=== PATIENT | female | born 1960 | race Caucasian/White ===

== ENCOUNTER 2017-08-27 00:05 | Emergency (ER) | payer MEDICAID ==
[~2017-08-27] VITALS: Ht 160 cm; Wt 44.0 kg
[2017-08-27 00:09] VITALS: BP_SYST 117
[2017-08-27] MEDS ORDERED: NACL 0.9% 1,000 ML IV ONE (00:27)
[2017-08-27] MEDS ORDERED: ONDANSETRON HCL 4 MG/2 ML VIAL IVP ONE (00:30)
[2017-08-27] MEDS ORDERED: KETOROLAC TROMETHAMINE 30 MG VIAL IVP ONE ×2 (00:30→02:15)
[2017-08-27 00:59] LABS: BASOPHILS # (AUTO) 0.2 K/uL (0.0-0.2); BASOPHILS % (AUTO) 1.2 % (0.0-2.0); EOSINOPHILS # (AUTO) 0.1 K/uL (0.0-0.4); EOSINOPHILS % (AUTO) 0.3 % (0.0-4.0); HEMATOCRIT 43.1 % (36-48); HEMOGLOBIN 14.2 g/dL (12.0-16.0); LYMPHOCYTES # (AUTO) 1.3 K/uL (1.0-5.5); LYMPHOCYTES % (AUTO) 7.7 % (20.5-51.5); MEAN CORPUSCULAR HEMOGLOBIN 32 pg (27-31); MEAN CORPUSCULAR HGB CONC 33 % (32-36); MEAN CORPUSCULAR VOLUME 97 fL (79.0-98.0); MONOCYTES # (AUTO) 0.7 K/uL (0.0-1.0); MONOCYTES % (AUTO) 3.9 % (1.7-9.3); NEUTROPHILS # (AUTO) 15.2 K/uL (1.8-7.7); NEUTROPHILS % (AUTO) 86.9 % (40.0-70.0); PLATELET COUNT (AUTO) 284 K/uL (130-430); RED BLOOD CELL COUNT(AUTO) 4.46 MIL/uL (4.2-6.2); RED CELL DISTRIBUTION WIDTH 12.4 % (9.0-15.0); WHITE BLOOD COUNT (AUTO) 17.5 K/uL (4.8-10.8)
[2017-08-27 01:15] LABS: CALCIUM 9.1 mg/dL (8.4-11.0); CREATININE 0.65 mg/dL (0.55-1.30); POTASSIUM 3.9 mmol/L (3.5-5.1)
[2017-08-27 01:20] LABS: ALBUMIN 3.2 g/dL (3.4-4.8); TOTAL BILIRUBIN 0.6 mg/dL (0.0-1.0)
[2017-08-27 02:00] VITALS: BP_SYST 119
== END 2017-08-27 02:30 | disposition home or self-care (01) ==
LOC: SED 00:05
DX: J02.9 Acute pharyngitis, unspecified (principal); J45.909 Unspecified asthma, uncomplicated
CPT/HCPCS: 36415; 71045; 80053; 85025; 86710; 96361; 96374; 96375; 96376; 99285; J1885; J2405; J7030

== ENCOUNTER 2017-08-27 17:19 | Emergency (ER) | payer MEDICAID ==
[~2017-08-27] VITALS: Ht 160 cm; Wt 44.5 kg
[2017-08-27 17:24] VITALS: BP_SYST 122
[2017-08-27] MEDS ORDERED: NACL 0.9% 1,000 ML IV ONE (17:36)
[2017-08-27] MEDS ORDERED: ONDANSETRON HCL 4 MG/2 ML VIAL IVP ONE (17:45)
[2017-08-27] MEDS ORDERED: FAMOTIDINE 20 MG TABLET PO ONE (17:45)
[2017-08-27] MEDS ORDERED: MORPHINE 4 MG/ML INJ. SYRINGE IVP ONE ×2 (17:45→19:00)
[2017-08-27 18:00] LABS: HEMOGLOBIN 13.3 g/dL (12.0-16.0)
[2017-08-27 18:01] LABS: HEMATOCRIT 38.8 % (36-48); MEAN CORPUSCULAR HEMOGLOBIN 33 pg (27-31); MEAN CORPUSCULAR HGB CONC 34 % (32-36); MEAN CORPUSCULAR VOLUME 97 fL (79.0-98.0); PLATELET COUNT (AUTO) 276 K/uL (130-430); RED CELL DISTRIBUTION WIDTH 12.1 % (9.0-15.0); WHITE BLOOD COUNT (AUTO) 19.2 K/uL (4.8-10.8)
[2017-08-27 18:13] LABS: CREATININE 0.89 mg/dL (0.55-1.30); POTASSIUM 4.2 mmol/L (3.5-5.1)
[2017-08-27 18:18] LABS: ALBUMIN 2.9 g/dL (3.4-4.8); TOTAL BILIRUBIN 0.4 mg/dL (0.0-1.0)
[2017-08-27 18:29] LABS: INR 1.1 (0.8-1.2)
[2017-08-27 18:31] LABS: BAND % (MANUAL) 4 % (0-6); LYMPHOCYTES % (MANUAL) 10 % (20-46)
[2017-08-27 18:32] LABS: BASOPHILS % (MANUAL) 0 % (0-2); EOSINOPHILS % (MANUAL) 0 % (0-7); MONOCYTES % (MANUAL) 3 % (0-11)
[2017-08-27] MEDS ORDERED: cefTRIAXone 1 GM in D5W 50 ML IV ONE (19:15)
[2017-08-27] MEDS ORDERED: cefTRIAXone 1 GM VIAL ONE (20:08)
[2017-08-27 20:46] VITALS: BP_SYST 108
== END 2017-08-27 20:46 | disposition home or self-care (01) ==
LOC: SED 17:19
DX: J01.90 Acute sinusitis, unspecified (principal); G43.909 Migraine, unspecified, not intractable, without status migrainosus; R10.9 Unspecified abdominal pain; J44.9 Chronic obstructive pulmonary disease, unspecified
CPT/HCPCS: 36415; 70450; 80053; 82150; 83690; 85007; 85027; 85610; 85730; 93005; 96361; 96365; 96375; 96376; 99285; J0696; J2270; J2405; J7030; J7060

== ENCOUNTER 2018-10-31 15:26 | Inpatient (IN) | payer MEDICAID ==
[~2018-10-31] VITALS: Ht 160 cm; Wt 49.4 kg
[2018-10-31 15:26] VITALS: BP_SYST 144
[2018-10-31] MEDS ORDERED: MAGNESIUM SULFATE 50 ML IV ONE (15:45)
[2018-10-31] MEDS ORDERED: IPRATROPIUM/ALBUTEROL SULFATE 3 ML AMPUL.NEB (DUONEB) INH ONE ×2 (15:45→17:15)
[2018-10-31] MEDS ORDERED: KETOROLAC TROMETHAMINE 30 MG VIAL IVP ONE (15:45)
[2018-10-31] MEDS ORDERED: methylPREDNISolone SOD SUCC/PF 62.5 MG/ML VIAL IVP ONE (15:45)
[2018-10-31] MEDS ORDERED: NACL 0.9% 1,000 ML IV ONE (15:45)
[2018-10-31 15:53] LABS: BASOPHILS # (AUTO) 0.1 K/uL (0.0-0.2); BASOPHILS % (AUTO) 0.4 % (0.0-2.0); HEMATOCRIT 43.7 % (36-48); HEMOGLOBIN 14.7 g/dL (12.0-16.0); LYMPHOCYTES # (AUTO) 0.9 K/uL (1.0-5.5); MEAN CORPUSCULAR HEMOGLOBIN 33 pg (27-31); MEAN CORPUSCULAR HGB CONC 34 % (32-36); MEAN CORPUSCULAR VOLUME 98 fL (79.0-98.0); MONOCYTES # (AUTO) 0.3 K/uL (0.0-1.0); MONOCYTES % (AUTO) 1.4 % (1.7-9.3); NEUTROPHILS # (AUTO) 16.8 K/uL (1.8-7.7); NEUTROPHILS % (AUTO) 93.2 % (40.0-70.0); PLATELET COUNT (AUTO) 336 K/uL (130-430); RED BLOOD CELL COUNT(AUTO) 4.45 MIL/uL (4.2-6.2); RED CELL DISTRIBUTION WIDTH 13.5 % (9.0-15.0)
[2018-10-31 16:11] LABS: PROTHROMBIN TIME 9.8 SECS (9.5-12.5)
[2018-10-31 16:27] LABS: CALCIUM 9.8 mg/dL (8.4-11.0); CREATININE 0.68 mg/dL (0.55-1.30); POTASSIUM 4.2 mmol/L (3.5-5.1)
[2018-10-31 16:31] LABS: ALBUMIN 3.9 g/dL (3.4-4.8); TOTAL BILIRUBIN 0.7 mg/dL (0.0-1.0)
[2018-10-31 17:37] LABS: BILIRUBIN,URINE NEGATIVE (NEGATIVE); BLOOD, URINE 1+ (NEGATIVE); CLARITY/URINE CLEAR (CLEAR); GLUCOSE,URINE NEGATIVE (NEGATIVE); KETONES,URINE NEGATIVE (NEGATIVE); LEUKOCYTE ESTERASE ,URINE NEGATIVE (NEGATIVE); NITRITE, URINE NEGATIVE (NEGATIVE); PH,URINE 5.5 (5.0-8.0); PROTEIN URINE NEGATIVE (NEGATIVE); UROBILINOGEN,URINE 0.2 (0.2-1.0)
[2018-10-31 17:45] LABS: COLOR,URINE STRAW (YELLOW)
[2018-10-31 17:52] LABS: BACTERIA,URINE RARE /HPF (None Seen); MUCUS,URINE None Seen /LPF (None Seen); RBC,URINE 0-3 /HPF (0-3); WBC,URINE NONE SEEN /HPF (0-3)
[2018-10-31] MEDS ORDERED: MONT10TA25 PO (18:46)
[2018-10-31] MEDS ORDERED: SEREVENT INH (18:46)
[2018-10-31] MEDS ORDERED: PANT20TA2 PO (18:50)
[2018-10-31] MEDS ORDERED: IPRA4AER INH ×2 (18:50)
[2018-10-31] MEDS ORDERED: ONDANSETRON HCL 4 MG/2 ML VIAL IVP PRN (20:15)
[2018-10-31] MEDS ORDERED: IPRATROPIUM/ALBUTEROL SULFATE 3 ML AMPUL.NEB (DUONEB) INH PRN (20:15)
[2018-10-31] MEDS ORDERED: ACETAMINOPHEN 325 MG TABLET PO PRN (20:15)
[2018-10-31] MEDS ORDERED: POTASSIUM CHLORIDE 20 MEQ TAB.PRT.SR PO PRN (20:15)
[2018-10-31] MEDS ORDERED: LORazepam 2 MG/ML VIAL IVP PRN (20:15)
[2018-10-31] MEDS ORDERED: DOCUSATE SODIUM 100 MG CAPSULE PO PRN (20:15)
[2018-10-31] MEDS ORDERED: MUPIROCIN 2% TOPICAL OINTMENT 22 GM NS PRN (20:15)
[2018-10-31] MEDS ORDERED: ZOLPIDEM TARTRATE 5 MG TABLET PO PRN (20:15)
[2018-10-31] MEDS ORDERED: MAGNESIUM SULFATE 50 ML IV PRN (20:15)
[2018-10-31] MEDS ORDERED: MORPHINE 2 MG/ML INJ. SYRINGE IVP PRN (20:15)
[2018-10-31 20:20] VITALS: BP_SYST 138
[2018-10-31] MEDS: MORPHINE 2 MG/ML INJ. SYRINGE IVP PRN (21:19)
[2018-10-31] MEDS: methylPREDNISolone SOD SUCC 40 MG/ML VIAL IVP SCH (21:20)
[2018-10-31] MEDS: HEPARIN SODIUM,PORCINE 5000 UNITS/ML VIAL SUBCUT SCH (21:31)
[2018-10-31] MEDS ORDERED: AZITHROMYCIN 500 MG/VIAL (ZITHROMAX) IV ONE (23:17)
[2018-10-31] MEDS: AZITHROMYCIN 500 MG in NS 250 ML IV SCH (23:19)
[2018-10-31 23:42] VITALS: BP_SYST 121
[2018-11-01] MEDS: ALBUTEROL SULFATE 0.083% 2.5 MG/3 ML VIAL.NEB INH SCH ×2 (01:05→06:27)
[2018-11-01 01:27] VITALS: BP_SYST 121
[2018-11-01] MEDS: MORPHINE 2 MG/ML INJ. SYRINGE IVP PRN (06:47)
[2018-11-01] MEDS ORDERED: ALBUTEROL SULFATE 0.083% 2.5 MG/3 ML VIAL.NEB INH SCH (06:48)
[2018-11-01] MEDS ORDERED: BUDESONIDE 0.5 MG/2 ML AMPUL.NEB INH ONE (07:15)
[2018-11-01 08:00] VITALS: BP_SYST 106
[2018-11-01] MEDS: MONTELUKAST 10 MG TABLET PO SCH (09:02)
[2018-11-01] MEDS: methylPREDNISolone SOD SUCC 40 MG/ML VIAL IVP SCH ×3 (09:03→22:57)
[2018-11-01] MEDS: HEPARIN SODIUM,PORCINE 5000 UNITS/ML VIAL SUBCUT SCH ×2 (09:05→20:17)
[2018-11-01] MEDS ORDERED: LORazepam 2 MG/ML VIAL IVP PRN (09:15)
[2018-11-01] MEDS: cefTRIAXone 1 GM in D5W 50 ML IV SCH (10:59)
[2018-11-01] MEDS: IPRATROPIUM BROM 0.5 MG/2.5 ML VIAL.NEB (ATROVENT) INH SCH ×2 (12:38→19:32)
[2018-11-01] MEDS: LevALBUTEROL HCL 1.25 MG/0.5 ML *CONC.* VIAL.NEB (XOPENEX CONC.) INH SCH ×2 (12:39→19:32)
[2018-11-01 12:46] VITALS: BP_SYST 119
[2018-11-01 16:53] VITALS: BP_SYST 117
[2018-11-01] MEDS: BUDESONIDE 0.5 MG/2 ML AMPUL.NEB INH SCH (19:34)
[2018-11-01 20:00] VITALS: BP_SYST 101
[2018-11-01] MEDS: FIORCET PO PRN (20:25)
[2018-11-01] MEDS: AZITHROMYCIN 500 MG in NS 250 ML IV SCH (22:56)
[2018-11-02 01:02] VITALS: BP_SYST 106
[2018-11-02] MEDS: LevALBUTEROL HCL 1.25 MG/0.5 ML *CONC.* VIAL.NEB (XOPENEX CONC.) INH SCH ×4 (01:25→20:17)
[2018-11-02] MEDS: IPRATROPIUM BROM 0.5 MG/2.5 ML VIAL.NEB (ATROVENT) INH SCH ×4 (01:25→20:17)
[2018-11-02] MEDS: methylPREDNISolone SOD SUCC 40 MG/ML VIAL IVP SCH ×3 (06:13→22:20)
[2018-11-02] MEDS: FIORCET PO PRN ×3 (06:21→18:41)
[2018-11-02 06:25] LABS: BASOPHILS % (AUTO) 0.1 % (0.0-2.0); HEMATOCRIT 38.6 % (36-48); HEMOGLOBIN 12.7 g/dL (12.0-16.0); LYMPHOCYTES # (AUTO) 1.4 K/uL (1.0-5.5); LYMPHOCYTES % (AUTO) 8.4 % (20.5-51.5); MEAN CORPUSCULAR HEMOGLOBIN 33 pg (27-31); MEAN CORPUSCULAR HGB CONC 33 % (32-36); MEAN CORPUSCULAR VOLUME 99 fL (79.0-98.0); MONOCYTES # (AUTO) 0.5 K/uL (0.0-1.0); MONOCYTES % (AUTO) 2.7 % (1.7-9.3); NEUTROPHILS # (AUTO) 14.8 K/uL (1.8-7.7); NEUTROPHILS % (AUTO) 88.8 % (40.0-70.0); PLATELET COUNT (AUTO) 317 K/uL (130-430); RED BLOOD CELL COUNT(AUTO) 3.91 MIL/uL (4.2-6.2); RED CELL DISTRIBUTION WIDTH 13.6 % (9.0-15.0); WHITE BLOOD COUNT (AUTO) 16.7 K/uL (4.8-10.8)
[2018-11-02 06:45] LABS: CALCIUM 8.6 mg/dL (8.4-11.0); CREATININE 0.65 mg/dL (0.55-1.30); POTASSIUM 4.8 mmol/L (3.5-5.1)
[2018-11-02] MEDS: BUDESONIDE 0.5 MG/2 ML AMPUL.NEB INH SCH ×2 (07:35→20:18)
[2018-11-02 08:00] VITALS: BP_SYST 122
[2018-11-02] MEDS: MONTELUKAST 10 MG TABLET PO SCH (09:03)
[2018-11-02] MEDS: cefTRIAXone 1 GM in D5W 50 ML IV SCH (09:03)
[2018-11-02] MEDS: HEPARIN SODIUM,PORCINE 5000 UNITS/ML VIAL SUBCUT SCH ×2 (09:06→22:22)
[2018-11-02 12:00] VITALS: BP_SYST 117
[2018-11-02 16:06] VITALS: BP_SYST 129
[2018-11-02 20:00] VITALS: BP_SYST 125
[2018-11-02] MEDS: AZITHROMYCIN 500 MG in NS 250 ML IV SCH (22:21)
[2018-11-02] MEDS: MORPHINE 2 MG/ML INJ. SYRINGE IVP PRN (22:21)
[2018-11-03 00:36] VITALS: BP_SYST 115
[2018-11-03] MEDS: methylPREDNISolone SOD SUCC 40 MG/ML VIAL IVP SCH (06:01)
[2018-11-03] MEDS: IPRATROPIUM BROM 0.5 MG/2.5 ML VIAL.NEB (ATROVENT) INH SCH (07:21)
[2018-11-03] MEDS: BUDESONIDE 0.5 MG/2 ML AMPUL.NEB INH SCH (07:22)
[2018-11-03] MEDS: LevALBUTEROL HCL 1.25 MG/0.5 ML *CONC.* VIAL.NEB (XOPENEX CONC.) INH SCH (07:22)
[2018-11-03 08:00] VITALS: BP_SYST 145
[2018-11-03] MEDS: cefTRIAXone 1 GM in D5W 50 ML IV SCH (08:47)
[2018-11-03] MEDS: MONTELUKAST 10 MG TABLET PO SCH (08:47)
[2018-11-03] MEDS: HEPARIN SODIUM,PORCINE 5000 UNITS/ML VIAL SUBCUT SCH (08:49)
[2018-11-03] MEDS: MORPHINE 2 MG/ML INJ. SYRINGE IVP PRN (09:05)
[2018-11-03 11:16] VITALS: BP_SYST 132
== END 2018-11-03 11:25 | disposition home or self-care (01) | DRG 140 ==
LOC: SED 15:26 → STU 19:23 → SMU 11-01 16:33
PROVIDERS: ADMIT General Practice; ATTEND General Practice
DX: J44.1 Chronic obstructive pulmonary disease with (acute) exacerbation (principal); J45.901 Unspecified asthma with (acute) exacerbation; D72.829 Elevated white blood cell count, unspecified; G43.909 Migraine, unspecified, not intractable, without status migrainosus; K21.9 Gastro-esophageal reflux disease without esophagitis; T38.0X5A Adverse effect of glucocorticoids and synthetic analogues, initial encounter; F17.210 Nicotine dependence, cigarettes, uncomplicated; J98.4 Other disorders of lung; Z81.8 Family history of other mental and behavioral disorders; Z83.3 Family history of diabetes mellitus; Z79.899 Other long term (current) drug therapy; Z98.51 Tubal ligation status; Z90.49 Acquired absence of other specified parts of digestive tract; Z88.1 Allergy status to other antibiotic agents
CPT/HCPCS: 36415; 71045; 80048; 80053; 81000-TC; 83605; 84484; 85025; 85610-TC; 85730-TC; 86710; 87040-TC; 93005; 94640; 94760; 96365; 96366; 96375; 99285; G0378; J0456; J0696; J1030; J1644; J1885; J2270; J2930; J3475; J7050; J7060; J7612; J7613; J7620; J7626